=== PATIENT | male | born 1945 | race Caucasian/White ===

== ENCOUNTER 2022-05-02 09:05 | Outpatient (CLI) | payer MEDICARE, OTHER ==
--- NOTE | 2022-05-02 09:56 | SLEEP CARE CONSULTATION ---
Information from patient questionnaire entered by Eileen Hernandez. I have reviewed and concur with the information entered by Eileen Hernandez. This document represents the service I personally performed and the decisions made by me, Neeru Mendosa ARNP. History of Present Illness Service Date and Time: 05/02/2022 0905 Reason for Visit: New patient, Previously diagnosed sleep apnea, sleep apnea on CPAP therapy Chief Complaint: reports: Other (UPDATE SUPPLIES ) Date of Onset: 10YRS Usual bedtime: 1030M Time it takes to fall asleep: 2MIN Snores at night: Yes Observed to quit breathing while asleep: Yes Sleeps alone due to snoring: No Number of times waking at night: 0-1 Reasons for waking at night: reports: Bathroom Toss, Turn, or Twitch while sleeping: No Recalls having dreams: Yes Usually gets out of bed at: 730AM Feels refreshed in the morning: Yes Morning headache: No Sleepy or fatigued during the day: No Ever fallen asleep while driving: No Takes day naps: No Dreams during day naps: No Prior sleep studies: Yes Year and Where: 2010 [facility]; [place], [place] Type of Sleep Study: Polysomnography Additional HPI information: RENAN PHIPPS was previously diagnosed to have moderate, AHI 19.8, obstructive sleep apnea-hypopnea syndrome and comes in today to establish care for CPAP therapy. He was diagnosed in July 05, 2010 with [facility] in [place], [place]. - Parasomnia Symptoms Ever been unable to move upon waking from sleep: No Walks in sleep: No Talks in sleep: No Ever acted out dreams in sleep: No Ever felt weak in the knees when startled or emotional: No Bothered by creepy, crawly, restless sensations in legs: No Problems with memory or concentration: No CPAP Compliance Data - Data Reviewed with Patient Average duration of nightly device use: 8 hours 37 mins Compliance rate %: 96.7 (30 days used) Current pressure setting (cmH2O): 7-14 Average residual AHI: 1.1 Central apnea: 0 Obstructive apnea: 0.1 Average large leak: 0 Compliance data discussion: He has been getting his supplies from [employer]. He is using a [employer] Nasal Pillows, medium. He does have back up mask. He last changed his cushion about 1 week ago. He has an updated Dreamstation from [employer]. Subjective Patient concerns: reports: dry mouth, nose, throat (occasionally, has sinus issues). denies: aerophagia, mask discomfort, air blowing in eyes, mask leak noise, condensation in mask/hose, nasal congestion Observed to snore while using device: No Current pressure setting perceived as: comfortable On therapy, patient: reports: sleeping better, awakening more refreshed, being more awake and alert during the day, more rested overall. denies: drowsiness while driving Initial [place] Sleepiness Scale score: 6 (04/09/2022) Past Medical History Past Medical History: reports: Hypertension, Other (BPH) Social History The patient's occupation is a RE. Patient is and lives in [place]. Have you smoked in the past 12 months: No Cigarettes per day (20/pack): 20 Years of smokin Quit date: 1997 Smoking Pack Years: 35.0 Alcohol use: Yes Alcohol amount and frequency: 3 DRINKS ALMOST DAILY Caffeine use: Yes Caffeine amount and frequency: RARELY Family History Family history of sleep disordered breathing: No Allergies and Home Medications Known drug allergies: No Drug allergies reviewed: Yes (NKDA) Home medication list reviewed: Yes Allergy and home medication list: Medications: Lisinopril Terazosin Finasteride HCTZ Review of Systems Cardiovascular: reports: high blood pressure Urinary: reports: other (BPH) Ear/Nose/Throat: reports: tonsillectomy Physical Exam Vital signs obtained and entered by: EILEEN Gomes MA Blood Pressure: 128/78 (LEFT ARM) Cuff size: regular Heart Rate: 61 O2 Saturation: 97 Height: 5 ft 7 in Weight: 233 lb 3.2 oz Body Mass Index: 36.5 BMI Classification: Obese Neck circumference: 18 Heart: regular rate and rhythm Lungs: clear bilaterally Impression and Plan 1. Obstructive Sleep Apnea-Hypopnea Syndrome, moderate, with good treatment compliance and good apnea control. On CPAP therapy, the patient has better sleep quality and is more rested overall. Patient is new to [facility] and needs to establish care for his CPAP and transfer DME supplier locally. I will write a prescription for this and update supplies as well. Patient has significant improvement of their sleep apnea and are satisfied with current CPAP therapy. Patient denies problems with oral dryness, nasal congestion, epistaxis, skin irritation or aerophagia. Patient's apnea severity and rationale for treatment to reduce apnea, improve sleep quality and reduce cardiovascular and cerebrovascular events was reviewed. I also reviewed the benefit of consistent device use of CPAP for hypertension. 2. Obesity, unspecified. Currently patients BMI is 36.5. Obesity increases the risk of apnea, CPAP pressure requirements and overall health risks especially cardiovascular and diabetes. Thus patient is advised to lose weight. The patient's CPAP pressure range should accommodate some weight loss. Symptoms to report for additional pressure adjustment discussed. * Continue auto CPAP pressure at 7-14 cmH2O * Transfer DME * Update supplies * Notify me if snoring with mask or feeling that the pressure is too much or too little * Attempt to lose weight * Call this office if any problems using CPAP * Return for follow up in 1 year, or sooner if concerns arise Counseling Topics: Weight loss health impact Visit Type: In Office Time Spent with Patient (minutes): 31 Provider Statement: I spent 100% of the Face to Face Visit with the patient with greater than 50% spent counseling the patient and coordination of care.
[2022-05-02 09:57] VITALS: BP 128/78
== END 2022-05-02 09:06 | disposition home or self-care (01) ==
LOC: SC 09:05
PROVIDERS: ATTEND Nurse Practitioner Family
DX: G47.33 Obstructive sleep apnea (adult) (pediatric) (principal); E66.9 Obesity, unspecified; Z68.36 Body mass index [BMI] 36.0-36.9, adult; Z87.891 Personal history of nicotine dependence
CPT/HCPCS: 99203; G0463; 99212

== ENCOUNTER 2022-12-08 16:53 | Outpatient (CLI) | payer MEDICARE, OTHER | END 2022-12-08 23:59 | disposition critical access hospital (66) | LOC: EMS 16:53 | DX: R06.02 Shortness of breath (principal); R06.2 Wheezing | CPT/HCPCS: A0425; A0427 ==

== ENCOUNTER 2022-12-08 17:19 | Emergency (ER) | payer MEDICARE, OTHER ==
[2022-12-08] MEDS ORDERED: ALBUTEROL NEB 2.5 MG/3 ML INH STA (17:31)
[2022-12-08] MEDS ORDERED: DEXAMETHASONE 10 MG/ML VIAL IVP STA (17:31)
--- NOTE | 2022-12-08 17:33 | ED Physician Documentation ---
PD HPI DYSPNEA - Stated complaint Stated Complaint: SOA - History obtained from History obtained from: Patient, EMS - History of Present Illness Timing - onset: Today Timing - onset during: Light activity Timing - duration: Hours Timing - details: Abrupt onset, Still present, Other (improved en-route) Inciting event(s): Other (working with the weed eater) Improved by: O2, Inhaler/neb, Rest Worsened by: Exertion, Coughing, Allergens Associated symptoms: Cough. No: Fever, Hemoptysis, Wheezing, Chest pain / discomfort, Palpitations, Diaphoresis, Bilateral edema, Unilateral edema, Anxiety Similar symptoms before: Has not had sx before Recently seen: Not recently seen - Additional information Additional information: Abilio Marin is a 77-year-old male with a history of sleep apnea who reports that he was working in his yard with a weed eater when he developed sudden onset of shortness of breath. This got worse when he attempted to walk up a flight of stairs to get back into his home. He eventually called the ambulance and he had some relief of his shortness of breath in route to the hospital with a DuoNeb treatment. He reports he does not have a history of asthma or COPD. He has never had to use and inhaler. Review of Systems Constitutional: denies: Fever Eyes: denies: Decreased vision Ears: denies: Ear pain Nose: denies: Rhinorrhea / runny nose, Congestion Throat: denies: Sore throat Cardiac: denies: Chest pain / pressure, Palpitations Respiratory: reports: Dyspnea. denies: Cough, Wheezing GI: denies: Abdominal Pain PD PAST MEDICAL HISTORY - Present Medications Home Medications: Ambulatory Orders Medication Instructions Recorded Confirmed Finasteride [Proscar] See Rx Instructions .ROUTE .COMPLEX 05/02/22 05/02/22 Lisinopril [Zestril] See Rx Instructions .ROUTE .COMPLEX 05/02/22 05/02/22 Terazosin [Hytrin] See Rx Instructions .ROUTE .COMPLEX 05/02/22 05/02/22 hydroCHLOROthiazide [Hydrodiuril] See Rx Instructions .ROUTE .COMPLEX 05/02/22 05/02/22 Albuterol Sulf [Ventolin Hfa 1 - 2 puffs INH Q4HR PRN #1 each 12/08/22 Inhaler] predniSONE [Deltasone] 40 mg PO DAILY 5 Days #10 tablet 12/08/22 - Allergies Allergies/Adverse Reactions: Allergies Allergy/AdvReac Type Severity Reaction Status Date / Time No Known Drug Allergies Allergy Verified 05/02/22 10:32 PD ED PE NORMAL - Vitals Vital signs reviewed: Yes - General General: Alert and oriented X 3, No acute distress, Well developed/nourished - HEENT HEENT: Atraumatic, PERRL, EOMI - Neck Neck: Supple, no meningeal sign, No bony TTP - Cardiac Cardiac: RRR, No murmur - Respiratory Respiratory: No respiratory distress, Other (rhonchi in left upper lobe) - Abdomen Abdomen: Soft, Non tender - Back Back: No CVA TTP, No spinal TTP - Derm Derm: Normal color, Warm and dry, No rash - Extremities Extremities: No deformity, No edema - Neuro Neuro: Alert and oriented X 3, corporate development analyst 2-12 intact, No motor deficit, No sensory deficit, Normal speech Eye Opening: Spontaneous Motor: Obeys Commands Verbal: Oriented GCS Score: 15 - Psych Psych: Normal mood, Normal affect Results - Vitals Vitals: Vital Signs - 24 hr 12/08/22 12/08/22 12/08/22 17:32 18:05 19:50 Temperature 37.0 C Heart Rate 85 76 78 Respiratory 18 18 16 Rate Blood Pressure 152/96 H 173/96 H O2 Saturation 93 95 Oxygen O2 Source Room air Oxygen Flow Rate 2 - EKG (time done) 1738 EKG releavant findings:: EKG personally interpreted by author of this note. Relevant findings are: Rate: Rate (enter#) (76) Rhythm: NSR Ischemia: Normal ST segments Compare to prior EKG: Old EKG unavailable Computer interpretation: Agree with computer - Labs Labs: Laboratory Tests 12/08/22 12/08/22 12/08/22 17:40 17:40 17:40 WBC 5.6 RBC 4.70 Hgb 15.0 Hct 44.6 MCV 94.9 H MCH 31.9 H MCHC 33.6 RDW 12.5 Plt Count 188 MPV 9.9 Neut # (Auto) 3.4 Lymph # (Auto) 1.2 L Sequoyah # (Auto) 0.5 Eos # (Auto) 0.4 Baso # (Auto) 0.0 Absolute Nucleated RBC 0.00 Nucleated RBC % 0.0 D-Dimer 205.6 Sodium 142 Potassium 3.7 Chloride 106 Carbon Dioxide 29 Anion Gap 7.0 BUN 19 Creatinine 0.9 Estimated GFR (MDRD) 82 L Glucose 117 H Calcium 8.9 Total Bilirubin 0.6 AST 27 ALT 34 Alkaline Phosphatase 46 Troponin I High Sens B-Natriuretic Peptide Total Protein 6.6 L Albumin 3.8 Globulin 2.8 Albumin/Globulin Ratio 1.4 Lipase 32 12/08/22 12/08/22 17:40 17:40 WBC RBC Hgb Hct MCV MCH MCHC RDW Plt Count MPV Neut # (Auto) Lymph # (Auto) Sequoyah # (Auto) Eos # (Auto) Baso # (Auto) Absolute Nucleated RBC Nucleated RBC % D-Dimer Sodium Potassium Chloride Carbon Dioxide Anion Gap BUN Creatinine Estimated GFR (MDRD) Glucose Calcium Total Bilirubin AST ALT Alkaline Phosphatase Troponin I High Sens 10.4 B-Natriuretic Peptide 17 Total Protein Albumin Globulin Albumin/Globulin Ratio Lipase - Rads (name of study) chest Relevant Findings:: Prelim report reviewed (Impression: No acute cardiopulmonary process.), EMP independent interpretation of test PD Medical Decision Making - ED course Complexity details: reviewed old records, reviewed results, re-evaluated patient, considered differential, d/w patient, d/w family Reviewed Lab Results: We reviewed a complete blood count showing a normal white blood cell count normal hemoglobin hematocrit and platelets coagulation was a normal D-dimer at 205.6 chemistries were unremarkable with normal electrolytes normal kidney and liver function a troponin was normal at 10.4 and a BNP was normal at 17 these benign-appearing laboratory studies are consistent with a benign process and help to in eliminate pulmonary embolus, overwhelming infection, FL or congestive failure. A chest x-ray was obtained demonstrating a normal-appearing chest and further eliminating infiltrate, hemo or pneumothorax, broken rib or evidence of dissection. The studies all help to guide our therapy toward the most obvious. The patient appears to have an allergic-like reaction to pollen that was stirred up by weed whacking. ED course: 77-year-old male with acute shortness of breath that appears environmentally related improved in route to the hospital with a DuoNeb treatment he receives albuterol here with further improvement and we have administered a dose of dexamethasone as well. Patient has continued an improvement. Departure - Departure Disposition: 01 Home, Self Care Clinical Impression: Reactive airway disease with acute exacerbation Qualifiers: Asthma severity: mild Asthma persistence: intermittent Qualified Code(s): J45.21 - Mild intermittent asthma with (acute) exacerbation Condition: Stable Instructions: ED Reactive Airway Disease Follow-Up: EBONY SANTILLAN PA [Primary Care Provider] - Prescriptions: Albuterol Sulf [Ventolin Hfa Inhaler] 1 - 2 puffs INH Q4HR PRN #1 each PRN Reason: Shortness Of Air/Wheezing predniSONE [Deltasone] 40 mg PO DAILY 5 Days #10 tablet Comments: Abilio, today looks like you got into something that disagreed with your lungs while you were weed whacking. We are expecting that the dose of dexamethasone that we gave you this evening will improve your breathing throughout the night. I have E scribed this a short course of prednisone and an inhaler for you to use to make sure you get through this episode. My recommendation is to use a dust mask when you are weed whacking. It seems like there is a component of something that you are weed whacking that you are sensitive to. Discharge Date/Time: 12/08/22 19:51
[2022-12-08 17:47] LABS: BASOPHILS % (AUTO) 0.7 %; EOSINOPHILS # (AUTO) 0.4 10^3/uL (0.0-0.7); EOSINOPHILS % (AUTO) 7.6 %; HCT - HEMATOCRIT 44.6 % (42.0-52.0); LYMPHOCYTES # (AUTO) 1.2 10^3/uL (1.5-3.5); LYMPHOCYTES % (AUTO) 21.3 %; MEAN CORPUSCULAR HEMOGLOBIN 31.9 pg (27.0-31.0); MEAN CORPUSCULAR HGB CONC 33.6 g/dL (32.0-36.0); MEAN CORPUSCULAR VOLUME 94.9 fL (80.0-94.0); MEAN PLATELET VOLUME 9.9 fL (7.4-11.4); MONOCYTES # (AUTO) 0.5 10^3/uL (0.0-1.0); NEUTROPHILS # (AUTO) 3.4 10^3/uL (1.5-6.6); PLT - PLATELET COUNT 188 10^3/uL (130-450); RED CELL DISTRIBUTION WIDTH 12.5 % (12.0-15.0); WHITE BLOOD COUNT 5.6 x10^3/uL (4.8-10.8)
[2022-12-08 18:01] LABS: ALBUMIN 3.8 g/dL (3.2-5.5); ALBUMIN/GLOBULIN RATIO 1.4 (1.0-2.2); BILIRUBIN,TOTAL 0.6 mg/dL (0.2-1.0); CALCIUM 8.9 mg/dL (8.5-10.3); CREATININE 0.9 mg/dL (0.6-1.2); POTASSIUM 3.7 mmol/L (3.5-5.0); TOTAL PROTEIN 6.6 g/dL (6.7-8.2)
--- NOTE | 2022-12-08 19:22 | XRAY Report ---
PROCEDURE: Chest 1 View X-Ray INDICATIONS: soa TECHNIQUE: One view of the chest was acquired. COMPARISON: None. FINDINGS: Surgical changes and devices: None. Lungs and pleura: No pleural effusions or pneumothorax. Lungs are clear. Mediastinum: Mediastinal contours appear normal. Heart size is normal. Bones and chest wall: No suspicious bony lesions. Overlying soft tissues appear unremarkable. IMPRESSION: No acute cardiopulmonary process. Reviewed by: Sanjay Mariano MD on 12/08/2022 6:21 PM AKANNELISE Approved by: Sanjay Mariano MD on 12/08/2022 6:21 PM AKDT Station ID: [id number]
[2022-12-08 19:53] VITALS: BP 173/96
== END 2022-12-08 19:51 | disposition home or self-care (01) ==
LOC: EDUNIT# → ED 17:19
DX: J45.21 Mild intermittent asthma with (acute) exacerbation (principal)
CPT/HCPCS: 36415; 80053; 83690; 83880; 84484; 85025; 85379; 93005; 94640; 96374; 99284